=== PATIENT | male | born 1980 | race Hispanic/Latino ===

== ENCOUNTER 2021-12-10 11:33 | Emergency (ER) | payer SELFPAY ==
[~2021-12-10] VITALS: Ht 185.4 cm; Wt 75.0 kg
[~2021-12-10 11:33] MED LIST: LORTAB5 OR; NO MEDS; PENICILLN VK500 M1 OR
[2021-12-10 11:46] VITALS: BP 113/79
[2021-12-10] MEDS ORDERED: FLONASE AL50 MCG/ACT (11:59)
[2021-12-10] MEDS ORDERED: PREDNISONE50 MG PO (11:59)
[2021-12-10] MEDS ORDERED: ALL DAY10 MG PO (11:59)
[2021-12-10 12:00] VITALS: BP 103/78
[2021-12-10 12:09] VITALS: BP 103/78
== END 2021-12-10 12:15 | disposition home or self-care (01) | DRG 916 ==
LOC: ED 11:33
DX: T78.40XA Allergy, unspecified, initial encounter (principal); R19.7 Diarrhea, unspecified; R05.9 Cough, unspecified